=== PATIENT | female | born 1985 | race Caucasian/White ===

== ENCOUNTER 2019-11-04 03:20 | Emergency (ER) | payer SELFPAY ==
[2019-11-04 03:23] VITALS: BP 158/104; PULSE 114; RESP 16; TEMP 36.6; O2SAT 100
--- NOTE | 2019-11-04 03:46 | ED.SKABFB ---
HPI - Skin/Abscess/Foreign Bdy General Chief complaint: Skin/Abscess/Foreign Body Stated complaint: Shingles Time Seen by Provider: 11/04/19 03:28 History of Present Illness HPI narrative: Patient is a 34-year-old female who presents with 2 complaints. First complaint is low back pain beginning 1 week ago. Left-sided and intermittent. Radiates down left leg. Has had similar discomfort with sciatica in the past. Around 8 PM yesterday evening patient noticed that she had a new rash through the lateral aspect of her left thigh. Is had no pustules or blistering/vesicles. It is not itching. She has not applied any cream to it. Concerned it may be shingles that she had this in the past during her . No fevers or chills or sweats. Related Data Home Medications Medication Instructions Recorded Confirmed dextroamphetamine-amphetamine 30 mg PO DAILY 11/04/19 11/04/19 [Adderall XR] fluoxetine [Prozac] 40 mg PO DAILY 11/04/19 11/04/19 Allergies Allergy/AdvReac Type Severity Reaction Status Date / Time No Known Allergies Allergy Verified 11/04/19 03:45 Review of Systems Musculoskeletal: Comments: Low back pain with radiation down the left leg. Integumentary/Breasts: Skin/Breast: Denies pruritus and Reports rash Neurologic: Denies numbness, Reports radicular pain and Denies tingling PMFSH Past Medical History Medical History (Updated 11/04/19 @ 04:01 by Fahad Acosta MD) ADHD Surgical History Surgical History (Updated 11/04/19 @ 04:01 by Fahad Acosta MD) No pertinent past surgical history Social History Social History Gender identity (if verbalized by the patient): Female Exam Narrative: Exam Narrative: GENERAL: Well-appearing, well-nourished, and in no acute distress. HEAD: Normocephalic, atraumatic. EXTREMITIES: Normal range of motion. Normal strength. Back: No reproducible tenderness in the left paraspinal lumbar region. No evidence of trauma or rash to the back or buttock bilaterally. SKIN: Warm, dry. Rash left lateral thigh that has some scaling on top of it. Please see picture below. No vesicles or pustules. No excoriations. Pattern rash that has clearing centrally that looks like a train track, looks like it may have been rubbing on the seam of the pant leg. NEURO: Alert and oriented x3. PSYCH: Normal mood and affect. Extrem: Knee images: 1. 2. 3. Course Course Emergency Course: Discussed with patient I feel she has contact dermatitis given the fact that there is a pattern to the rash on the lateral aspect of her left leg. Also discussed that low back pain going down legs seems more typical of sciatic nerve pain. Discussed treatment plan. Patient did not agree with the plan as she feels that she has shingles which she has no history of vesicular eruption and the rashes not consistent with shingles. She walked out without her paperwork. Vital Signs Vital signs: Vital Signs Temperature 97.8 F 11/04/19 03:23 Pulse Rate 114 H 11/04/19 03:23 Respiratory Rate 16 11/04/19 03:23 Blood Pressure 158/104 H 11/04/19 03:23 Pulse Oximetry 100 11/04/19 03:23 Temperature 97.8 F 11/04/19 03:23 Pulse Rate 114 H 11/04/19 03:23 Respiratory Rate 16 11/04/19 03:23 Blood Pressure 158/104 H 11/04/19 03:23 Pulse Oximetry 100 11/04/19 03:23 Discharge Plan Discharge Clinical Impression: Contact dermatitis Qualifiers: Contact dermatitis type: unspecified Contact dermatitis trigger: unspecified trigger Qualified Code(s): L25.9 - Unspecified contact dermatitis, unspecified cause Sciatica Qualifiers: Laterality: left Qualified Code(s): M54.32 - Sciatica, left side Patient Disposition: Home, Self-Care Condition: Stable Instructions: Contact Dermatitis (ED), Sciatica (ED) Prescriptions: No Action fluoxetine [Prozac] 40 mg Capsule 40 mg PO DAILY RF: 0 dextroamphetamine-amphetamine [Adderall XR] 30 mg Capsule,Extended Rele
== END 2019-11-04 03:50 | disposition home or self-care (01) ==
LOC: ANHED 03:59
PROVIDERS: Emergency Provider Emergency Medicine
DX: M54.42 Lumbago with sciatica, left side (principal); L25.9 Unspecified contact dermatitis, unspecified cause; F90.9 Attention-deficit hyperactivity disorder, unspecified type
CPT/HCPCS: 99281

== ENCOUNTER 2021-05-14 07:01 | Inpatient (IN) | payer OTHER, SELFPAY ==
[2021-05-14] VITALS (32 sets, daily range): BP systolic 99–144; BP diastolic 59–96; PULSE 111–137; RESP 14–27; TEMP 36.2–38.9; O2SAT 100; BMI 27.7
--- NOTE | ~2021-05-14 | CT_ITS ---
EXAMINATION: CT abdomen pelvis w con EXAM DATE: 05/14/2021 09:31 INDICATION: LLQ abd pain with nausea . TECHNIQUE: Spiral CT of the abdomen and pelvis was performed following intravenous injection of 100 m L Omnipaque 350. Axial, coronal and sagittal images of the abdomen and pelvis were reviewed. The do se-length product (DLP) for this examination was 657.85 mGy-cm. The exposure was tailored according to patient size (auto mA exposure control), and iterative reconstruction (ASIR) was used as additiona l dose reduction technique. There is no prior study for comparison. FINDINGS: The liver, spleen, adrenal glands and pancreas are unremarkable. Gallbladder is unremarkab le. No biliary obstruction. Portal and splenic veins are patent. Kidneys enhance symmetrically. T here is no hydronephrosis. The uterus is unremarkable. The bladder is unremarkable. There is no retroperitoneal or pelvic lymphadenopathy. There is mild to moderate thickening of long segment of ileum with mild diffuse edema in the mesenter y. Some of the mesenteric edema also partially surrounds the appendix which is probably congenitally large, no acute appendicitis suspected. Mesenteric arteries and veins enhance as expected. There is s mall to moderate-sized gastroesophageal hiatal hernia. There is moderate amount of colonic fluid pro ximally, stool distally. No free intraperitoneal gas. The heart is normal in size. There are no pericardial or pleural effusions. The lung bases are unremarkable. There are no osteoblastic or ost eolytic lesions identified. IMPRESSION: 1. Enteritis, ileitis. Possible underlying etiologies include infection and inflammatory bowel diseas e. 2. Small to moderate hiatal hernia. Reviewed, dictated and finalized at location A. IMPRESSION: 1. Enteritis, ileitis. Possible underlying etiologies include infection and inf lammatory bowel disease. 2. Small to moderate hiatal hernia.
--- NOTE | 2021-05-14 07:17 | ED.ABDPAIN ---
HPI - Abdominal Pain General Chief Complaint: Abdominal Pain Stated Complaint: abd pain Time Seen by Provider: 05/14/21 07:10 History of Present Illness HPI narrative: Patient presents with abdominal pain. Reports her symptoms started last night have been constant throughout the evenings they were not resolving came to the ER for evaluation. Pain is sharp described as someone ripping out of her intestines worse with any sort of body movement is associated with nausea but does not radiate anywhere. She denies fevers known sick contacts prior abdominal surgeries she denies any urinary symptoms or vaginal bleeding. Related Data Home Medications Medication Instructions Recorded Confirmed dextroamphetamine-amphetamine 30 mg PO DAILY 11/04/19 05/14/21 [Adderall XR] fluoxetine [Prozac] 40 mg PO DAILY 11/04/19 05/14/21 Allergies Allergy/AdvReac Type Severity Reaction Status Date / Time No Known Allergies Allergy Verified 05/14/21 07:08 Review of Systems Review of Systems: CONSTITUTIONAL: Denies fever, chills, or sweats. EYES: Denies visual changes, redness, or discharge. ENT: Denies rhinorrhea, congestion, sore throat, or otalgia. CARDIOVASCULAR: Denies chest pain, palpitations, or edema. RESPIRATORY: Denies cough or dyspnea. GASTROINTESTINAL: Denies vomiting, or diarrhea. GENITOURINARY: Denies dysuria or hematuria. SKIN: Denies rash or itching. MUSCULOSKELETAL: Denies back pain, joint pain, or myalgia. NEUROLOGIC: Denies headache, numbness, dizziness, or weakness. PSYCHIATRIC: Denies anxiety or depression. All systems reviewed & are unremarkable except as noted in HPI and below PMFSH Past Medical History Medical History ADHD Surgical History Surgical History No pertinent past surgical history Social History Social History Smoking status: Smoker, status unknown Alcohol intake: current Drinks per week: 7 Substance use: never Substance use type: does not use Gender identity (if verbalized by the patient): Female Spiritual care concerns: No Exam Narrative: GENERAL: Well-appearing, well-nourished, and in no acute distress. HEAD: Normocephalic, atraumatic. EYES: PERRLA and EOMI. ENT: Nares clear, no rhinorrhea or epistaxis. Mucous membranes moist. NECK: Supple. No masses. No JVD CHEST: Clear to auscultation. No respiratory distress. No wheezes rales or rhonchi HEART: Regular rate and rhythm. No murmur heard. Normal peripheral pulses. ABDOMEN: Moderate left lower quadrant abdominal pain with guarding soft, nondistended. EXTREMITIES: Normal range of motion. No edema. SKIN: Warm, dry, no rash. NEURO: No focal deficits. Alert and oriented x3. PSYCH: Normal mood and affect. Course Reevaluation(s) Reevaluation #1: Patient continues to have tachycardia and abdominal pain despite fluid resuscitation chronic pain medications and anti-inflammatories with vital sign abnormalities difficulty to control symptoms will admit for IV antibiotics and observation Date: 05/14/21 Time: 12:57 Vital Signs Vital signs: Vital Signs Temperature 37.5 C 05/14/21 07:02 Pulse Rate 125 H 05/14/21 07:02 Respiratory Rate 20 05/14/21 07:02 Blood Pressure 144/94 H 05/14/21 07:02 Pulse Oximetry 100 05/14/21 07:02 Temperature 37.1 C 05/14/21 13:41 Pulse Rate 118 H 05/14/21 13:50 Respiratory Rate 16 05/14/21 16:01 Blood Pressure 112/78 05/14/21 16:01 Pulse Oximetry 100 05/14/21 16:01 MDM - Abdominal Pain MDM Narrative Medical decision making narrative: Patient presents with lower abdominal pain she is noted to be tachycardic and hypertensive. Labs imaging obtained. Labs notable for leukocytosis of 24 lactate was normal imaging shows bowel inflammation infectious versus inflammatory process. Attempted 3 L of fluids patient
[2021-05-14] MEDS: SODIUM CHLORIDE 0.9% IV 1,000 ML 999 ML IV CONT ×3 (07:46→11:46)
[2021-05-14] MEDS: ONDANSETRON INJ 4 MG/2 ML VIAL IV PUSH (07:48)
[2021-05-14] MEDS: MORPHINE SULFATE (*CRX) 4 MG/ML INJ IV PUSH (07:48)
[2021-05-14 08:37] LABS: Alanine Aminotransferase 20 U/L (4-35); Albumin Level 4.5 g/dL (3.5-5.1); Alkaline Phosphatase 89 U/L (38-126); Anion Gap 8 mmol/L (8-16); Aspartate Amino Transferase 46 U/L (14-36); Bilirubin,Total 0.8 mg/dL (0.2-1.3); Blood Urea Nitrogen 13 mg/dL (7-17); Calcium 9.1 mg/dL (8.4-10.2); Carbon Dioxide 28 mmol/L (22-30); Chloride 100 mmol/L (98-107); Estimated CRCL calculation 73 ml/min; Estimated Glomerular Filt Rate > 60; Glucose 104 mg/dL (65-110); Lipase 46 U/L (23-300); Potassium 4.2 mmol/L (3.4-5.0); Sodium 136 mmol/L (137-145)
[2021-05-14 08:38] LABS: Lactic Acid Reflex 1.2 mmol/L (0.7-2.1)
[2021-05-14 09:32] LABS: Add Urine Microscopic? YES; Appearance Urine Clear (Clear); Bilirubin Urine Negative (Negative); Blood Urine 1+ (Negative); Color Urine Yellow (Yellow); Glucose Urine UA Negative (Negative); Ketones Urine Negative (Negative); Leukocyte Esterase Ur 2+ LEU/UL (Negative); Mucus Urine Rare /lpf; Nitrate Urine Negative (Negative); Protein Urine Negative (Negative); Specific Grav Ur 1.017 (1.001-1.035); Squamous Epithelial Cell Urine Occasional /hpf (Few); Urobilinogen Urine Negative mg/dL (<2.0); WBC Urine 16-20 /hpf
[2021-05-14 10:06] LABS: Basophils Absolute Auto 0.1 K/mm3 (0.0-0.1); Basophils Percent Auto 0.2 % (0.2-1.2); Eosinophils Absolute Auto 4.1 K/mm3 (0-0.3); Eosinophils Percent Auto 16.9 % (0-4.4); Hematocrit 44.3 % (37.0-47.0); Hemoglobin 13.9 g/dL (12.0-15.0); Immature Granulocyte Absolute 0.17 K/mm3 (0.00-0.031); Immature Granulocyte Percent A 0.7 % (0-0.5); Lymphocytes Absolute Auto 1.61 K/mm3 (0.9-3.2); Lymphocytes Percent Auto 6.6 % (18.3-44.2); Mean Corpuscular HGB Conc 31.4 g/dl (32-36); Mean Corpuscular Hemoglobin 28.7 pg (26-34); Mean Corpuscular Volume 91.3 fl (80-100); Mean Platelet Volume 10.1 fl (7.4-10.4); Monocytes Absolute Auto 0.5 K/mm3 (0.1-0.6); Neutrophils Absolute Auto 17.8 K/mm3 (1.3-6.7); Neutrophils Percent Auto 73.6 % (45.5-73.1); Platelet Count Result 261 k/mm3 (150-375); Red Blood Count 4.85 M/mm3 (4.2-5.4); Red Cell Distribution Width 14.5 % (11.5-14.5); White Blood Count 24.3 K/mm3 (4.5-10.0)
[2021-05-14] MEDS: KETOROLAC 30 MG/ML VIAL (*BKC) 15 MG IV PUSH (10:51)
[2021-05-14] MEDS: metroNIDAZOLE 500 MG/ISO 100ML 500 MG/100 ML BAG 100 MG IVPB ×3 (11:46→23:32)
[2021-05-14] MEDS: ACETAMINOPHEN 500 MG TABLET 1000 MG PO (12:02)
[2021-05-14 12:04] LABS: Lactic Acid Reflex 0.7 mmol/L (0.7-2.1)
[2021-05-14] MEDS: fentaNYL CITRATE INJ (*CRX) 100 MCG/2 ML VIAL 50 MCG IV PUSH ×3 (12:36→19:51)
[2021-05-14] MEDS: DICYCLOMINE HCL 10 MG CAPSULE PO (13:40)
[2021-05-14] MEDS: SODIUM CHLORIDE 0.9% IV 1,000 ML 125 ML IV CONT (16:55)
--- NOTE | 2021-05-14 19:05 | PM.IMHP ---
H&P: HPI History of Present Illness Date/Time: 05/14/21 19:05 this is a 36 year female patient who came to the emergency room today with complaints of abdominal pain. She states that her stomach is burning and feels like it is on fire. The patient stated that this started last night and has continued all through the night. There has not been any resolution and she came to the emergency room to be evaluated. The pain is worse with movement. She does have some nausea but no vomiting. She has more pain in her epigastric area but it does not radiate anywhere. No exposure sick contacts. No fever chills. No recent abdominal surgeries. No vaginal bleeding. Her white count is noted to be 24.3. Urine has 2+ leukocyte Estrace. WBC 16-20. No complain of any urinary symptoms. CT of the abdomen read as. Enteritis, ileitis. Possible underlying etiologies include infection and inflammatory bowel disease. 2. Small to moderate hiatal hernia. The patient was given morphine, Zofran, IV fluids, Toradol, Flagyl, Levaquin, IV Tylenol, fentanyl, and Bentyl for the discomfort. The patient still wakes up and cries at times. Patient also has been tachycardic with her heart rate in the 1 teens to 120s. The patient is being admitted to observation status on the date of service of 05/14/2021. Chief Complaint: Nausea and abdominal pain Review of Systems Review of Systems: All systems reviewed & are unremarkable except as noted in HPI and below Constitutional: Constitutional: Reports as per HPI and Reports no additional constitutional complaints Eyes: Eyes: Reports as per HPI and Reports no additional eye complaints ENT: Reports system reviewed and no additional complaints, except as documented and Reports Normal hearing present Cardiovascular: Cardiovascular: Reports no additional cardiovascular complaints Respiratory: Respiratory: Reports no additional respiratory complaints and Reports no additional respiratory complaints Gastrointestinal: Gastrointestinal: Reports as per HPI and Reports no additional gastrointestinal complaints Musculoskeletal: Musculoskeletal: Reports no additional musculoskeletal complaints Integumentary/Breasts: Skin/Breast: Reports system reviewed and no additional complaints, except as docu and Reports as per HPI Neurologic: Reports system reviewed and no additional complaints, except as documented, Reports as per HPI and Reports Normal hearing present Psychiatric: Psychiatric: Reports no additional psychiatric complaints and Reports as per HPI Endocrine: Endocrine: Reports no additional endocrine complaints Hematologic/Lymphatic: Hematologic/Lymphatic: Reports no additional hematologic/lymphatic complaints Allergic/Immunologic: Allergic/Immunologic: Reports no additional allergic/immunologic complaints PMFSH Past Medical History Medical History ADHD Surgical History Surgical History No pertinent past surgical history Family History Family History (Updated 05/14/21 @ 19:19 by Kim Brandt NP) Unknown No problems noted. Social History Social History (Updated 05/14/21 @ 19:21 by Kim Brandt NP) Social History: The patient has 3 children and is . She is unemployed at this time. She lives home with her children. She denies any alcohol tobacco marijuana or illicit drugs. Patient is a full code and denies any durable power personal injury attorney for healthcare. Smoking status: Smoker, status unknown Alcohol intake: current Drinks per week: 7 Substance use: never Substance use type: does not use Gender identity (if verbalized by the patient): Female Spiritual care concerns: No Meds Home Medications and Allergies Home Medications Medication Instructions Recorded Confirmed Type dextroamphetamine-amphetamine 30 mg PO DAILY 11/04/19 05/14/21 History [Adderall XR]
[2021-05-14] MEDS: FAMOTIDINE 20 MG/2 ML VIAL IV PUSH (19:49)
[2021-05-14] MEDS: CALCIUM CARBONATE (TUMS) 500 MG (200 MG ELEMENTAL) PO (19:49)
[2021-05-14] MEDS: KETOROLAC 30 MG/ML VIAL (*BKC) IV PUSH (22:43)
[2021-05-15] VITALS (9 sets, daily range): BP systolic 114–138; BP diastolic 78–85; PULSE 86–105; RESP 16; TEMP 36.1–37.2; O2SAT 99–100
[2021-05-15] MEDS: fentaNYL CITRATE INJ (*CRX) 100 MCG/2 ML VIAL 50 MCG IV PUSH ×6 (04:27→21:44)
[2021-05-15] MEDS: SODIUM CHLORIDE 0.9% IV 1,000 ML 125 ML IV CONT ×2 (04:40→09:36)
[2021-05-15] MEDS: metroNIDAZOLE 500 MG/ISO 100ML 500 MG/100 ML BAG 100 MG IVPB ×3 (05:05→17:08)
[2021-05-15 05:15] LABS: Barbiturate Screen Urine Negative (Negative); Benzodiazepines Screen Urine Negative (Negative)
[2021-05-15 05:23] LABS: Hematocrit 35.4 % (37.0-47.0); Hemoglobin 11.5 g/dL (12.0-15.0); Mean Corpuscular HGB Conc 32.5 g/dl (32-36); Mean Corpuscular Volume 89.2 fl (80-100); Mean Platelet Volume 9.6 fl (7.4-10.4); Platelet Count Result 292 k/mm3 (150-375); Red Blood Count 3.97 M/mm3 (4.2-5.4); Red Cell Distribution Width 14.6 % (11.5-14.5); White Blood Count 21.5 K/mm3 (4.5-10.0)
[2021-05-15 05:30] LABS: Cannabinoid Screen Urine Negative (Negative); Cocaine Screen Urine Negative (Negative); Methadone Screen Urine Negative (Negative); Opiate Screen Urine Positive (Negative); Phencyclidine Screen Urine Negative (Negative)
[2021-05-15 05:36] LABS: Alanine Aminotransferase 15 U/L (4-35); Alkaline Phosphatase 85 U/L (38-126); Anion Gap 7 mmol/L (8-16); Aspartate Amino Transferase 17 U/L (14-36); Bilirubin,Total 0.4 mg/dL (0.2-1.3); Blood Urea Nitrogen 13 mg/dL (7-17); Calcium 7.2 mg/dL (8.4-10.2); Carbon Dioxide 20 mmol/L (22-30); Chloride 110 mmol/L (98-107); Estimated CRCL calculation 94 ml/min; Estimated Glomerular Filt Rate > 60; Glucose 85 mg/dL (65-110); Magnesium 1.5 mg/dL (1.6-2.3); Phosphorus 2.5 mg/dL (2.5-4.5); Potassium 3.6 mmol/L (3.4-5.0); Sodium 137 mmol/L (137-145)
[2021-05-15 05:45] LABS: Band Neutrophils Percent 11 % (0-6); Lymphocytes Absolute Manual 1.93 K/mm3 (1.1-4.5); Monocytes Absolute Manual 0.43 K/mm3 (0.1-0.90); Monocytes Percent Manual 2 % (3-9); Neutrophils Absolute Manual 19.13 K/mm3 (1.7-7.2); Neutrophils Percent Manual 78 % (46-73); Total Cells Counted 100
[2021-05-15 05:46] LABS: Amphetamine Screen Urine Positive (Negative)
[2021-05-15 05:46] LABS: Platelet Estimate Adequate (Adequate)
[2021-05-15] MEDS: KETOROLAC 30 MG/ML VIAL (*BKC) IV PUSH (06:24)
--- NOTE | 2021-05-15 08:59 | PM.IMPN ---
Progress Note: A&P Assessment and Plan (1) Enteritis: Code(s): K52.9 - Noninfective gastroenteritis and colitis, unspecified Status: Acute Assessment and Plan: Patient was started on Levaquin and Flagyl. Continue with IV fluids. Patient is NPO except for ice chips. May consider GI consult. Continue with Pepcid. Continue with antiemetics. Continue with pain management. (2) Tachycardia: Code(s): R00.0 - Tachycardia, unspecified Status: Acute Assessment and Plan: Could be related to anxiety or sepsis. Patient has leukocytosis. (3) Leukocytosis (leucocytosis): Qualifiers: Leukocytosis type: unspecified Qualified Code(s): D72.829 - Elevated white blood cell count, unspecified Code(s): D72.829 - Elevated white blood cell count, unspecified Status: Acute Assessment and Plan: Patient's white count is 24.3. Blood cultures are pending. The patient was placed on Levaquin and Flagyl for possible bacteria enterocolitis. (4) Abdominal pain: Qualifiers: Abdominal location: unspecified location Qualified Code(s): R10.9 - Unspecified abdominal pain Code(s): R10.9 - Unspecified abdominal pain Status: Acute Assessment and Plan: Continue with IV fluids and IV pain medication. Continue with Bentyl. (5) UTI (urinary tract infection): Code(s): N39.0 - Urinary tract infection, site not specified Status: Acute Assessment and Plan: Urine culture and continue IV antibiotics (6) Substance abuse: Code(s): F19.10 - Other psychoactive substance abuse, uncomplicated Status: Acute Assessment and Plan: counseling given. Arranged for outpatient rehab. Additional Plan 05/15/2021 Will continue current plan of care and treatment. WBCs trending down. Will monitor closely, electrolytes are stable. Counseling given for substance abuse. Subjective Date/time seen: 05/15/21 08:59 Patient was seen during the morning rounds today. Still has mild abdominal pain. No nausea or vomiting. No chest pain or shortness of breath. Mood stable. Review of Systems Review of Systems: All systems reviewed & are unremarkable except as noted in HPI and below Constitutional: Constitutional: Reports as per HPI and Reports no additional constitutional complaints Eyes: Eyes: Reports as per HPI and Reports no additional eye complaints ENT: Reports system reviewed and no additional complaints, except as documented and Reports Normal hearing present Cardiovascular: Cardiovascular: Reports no additional cardiovascular complaints Respiratory: Respiratory: Reports no additional respiratory complaints and Reports no additional respiratory complaints Gastrointestinal: Gastrointestinal: Reports as per HPI and Reports no additional gastrointestinal complaints Musculoskeletal: Musculoskeletal: Reports no additional musculoskeletal complaints Integumentary/Breasts: Skin/Breast: Reports system reviewed and no additional complaints, except as docu and Reports as per HPI Neurologic: Reports system reviewed and no additional complaints, except as documented, Reports as per HPI and Reports Normal hearing present Psychiatric: Psychiatric: Reports no additional psychiatric complaints and Reports as per HPI Endocrine: Endocrine: Reports no additional endocrine complaints Hematologic/Lymphatic: Hematologic/Lymphatic: Reports no additional hematologic/lymphatic complaints Allergic/Immunologic: Allergic/Immunologic: Reports no additional allergic/immunologic complaints Exam Const: General: cooperative, comfortable, no acute distress, well developed, alert, awake, Physically active and ill appearing Nutritional Appearance: average body habitus and well nourished Orientation/consciousness: oriented to person, oriented to place, oriented to time and patient oriented x3 Limitations: no limitations HENMT: Head: normal to inspection, No palpa
[2021-05-15 09:28] LABS: Free T4 Free Thyroxine Reflex 1.51 ng/dL (0.78-2.19)
[2021-05-15] MEDS: HEPARIN SODIUM 5,000 UNITS/ML VIAL 5000 UNITS SUB-Q ×2 (09:28→19:42)
[2021-05-15] MEDS: FAMOTIDINE 20 MG/2 ML VIAL IV PUSH ×2 (09:28→19:42)
[2021-05-15] MEDS: FLUoxetine HCL 20 MG CAPSULE 40 MG PO (09:28)
[2021-05-15 10:27] LABS: Total Triiodothyronine (T3) 0.75 NG/ML (0.97-1.69)
[2021-05-16] VITALS (9 sets, daily range): BP systolic 121–140; BP diastolic 75–90; PULSE 86–103; RESP 16–20; TEMP 36.3–36.7; O2SAT 97–99
[2021-05-16] MEDS: metroNIDAZOLE 500 MG/ISO 100ML 500 MG/100 ML BAG 100 MG IVPB ×4 (00:10→18:29)
[2021-05-16] MEDS: SODIUM CHLORIDE 0.9% IV 1,000 ML 125 ML IV CONT ×2 (00:11→09:50)
[2021-05-16] MEDS: fentaNYL CITRATE INJ (*CRX) 100 MCG/2 ML VIAL 50 MCG IV PUSH ×2 (01:16→04:08)
[2021-05-16] MEDS: DICYCLOMINE HCL 10 MG CAPSULE 20 MG PO ×4 (02:50→20:07)
[2021-05-16 05:19] LABS: Hematocrit 32.1 % (37.0-47.0); Hemoglobin 10.4 g/dL (12.0-15.0); Mean Corpuscular HGB Conc 32.4 g/dl (32-36); Mean Corpuscular Hemoglobin 28.8 pg (26-34); Mean Corpuscular Volume 88.9 fl (80-100); Mean Platelet Volume 9.7 fl (7.4-10.4); Platelet Count Result 270 k/mm3 (150-375); Red Blood Count 3.61 M/mm3 (4.2-5.4); Red Cell Distribution Width 14.4 % (11.5-14.5); White Blood Count 14.4 K/mm3 (4.5-10.0)
[2021-05-16 05:33] LABS: Alanine Aminotransferase 12 U/L (4-35); Albumin Level 2.8 g/dL (3.5-5.1); Alkaline Phosphatase 86 U/L (38-126); Anion Gap 11 mmol/L (8-16); Aspartate Amino Transferase 21 U/L (14-36); Bilirubin,Total 0.2 mg/dL (0.2-1.3); Blood Urea Nitrogen 10 mg/dL (7-17); Calcium 7.7 mg/dL (8.4-10.2); Carbon Dioxide 17 mmol/L (22-30); Chloride 109 mmol/L (98-107); Estimated CRCL calculation 94 ml/min; Estimated Glomerular Filt Rate > 60; Glucose 70 mg/dL (65-110); Potassium 3.4 mmol/L (3.4-5.0); Sodium 137 mmol/L (137-145)
[2021-05-16] MEDS: FAMOTIDINE 20 MG/2 ML VIAL IV PUSH ×2 (09:19→20:02)
[2021-05-16] MEDS: HYDROcodone/acetaminophen (*CRX) 5-325 MG TABLET 1 TAB PO ×2 (09:19→16:36)
[2021-05-16] MEDS: FLUoxetine HCL 20 MG CAPSULE 40 MG PO (09:19)
[2021-05-16] MEDS: HEPARIN SODIUM 5,000 UNITS/ML VIAL 5000 UNITS SUB-Q ×2 (09:20→20:02)
--- NOTE | 2021-05-16 11:46 | PM.IMPN ---
Progress Note: A&P Assessment and Plan (1) Enteritis: Code(s): K52.9 - Noninfective gastroenteritis and colitis, unspecified Status: Acute Assessment and Plan: CT on presentation showed ileitis Infectious versus inflammatory etiology. Lactic acid level within normal limits, ischemic etiology unlikely. Infection more likely given markedly leukocytosis at presentation up to 24.3. Improved to 14.4 today with IV antibiotics. Febrile up to 102.0 at admission, remaining afebrile >48 hours Continue IV Levaquin and Flagyl Continue IV fluid rehydration Advance to clear liquid diet. Continue to advance as tolerated Will proceed with gastroenterology consultation given worsening of symptoms despite above therapies Supportive care. Analgesics and antiemetics available as needed. (2) Sepsis: Code(s): A41.9 - Sepsis, unspecified organism Status: Acute Assessment and Plan: Septic on presentation with fever, tachycardia, and leukocytosis. Lactic within normal limits. Likely related to infectious ileitis as above Resolving. White count improving. She is afebrile. Continue with IV fluids Blood cultures not collected at presentation. Will not proceed with blood culture collection at this point following 3 days of IV antibiotic therapy. If she were to develop subsequent fevers, would then obtain cultures (3) Abdominal pain: Qualifiers: Abdominal location: unspecified location Qualified Code(s): R10.9 - Unspecified abdominal pain Code(s): R10.9 - Unspecified abdominal pain Status: Acute Assessment and Plan: Suspect related to enteritis Plan as above Dicyclomine as needed (4) Abnormal urinalysis: Code(s): R82.90 - Unspecified abnormal findings in urine Status: Acute Assessment and Plan: UA abnormal on presentation. No urinary symptoms Urine culture negative No further treatment needed (5) Substance abuse: Code(s): F19.10 - Other psychoactive substance abuse, uncomplicated Status: Acute Assessment and Plan: UDS positive for opioids and amphetamines (she is on prescribed adderall). She has been counseled by previous provider regarding cessation of opioid use. Outpatient rehab reportedly discussed Continue to reinforce abstinence from substance use. Cautious use with narcotic pain medication during hospital stay. (6) Subclinical hypothyroidism: Code(s): E03.8 - Other specified hypothyroidism Status: Acute Assessment and Plan: TSH elevated, T4 within normal limits, and T3 slightly decreased She will need repeat reflex TSH as an outpatient upon resolution of acute illness in 4-6 weeks Subjective Date/time seen: 05/16/21 11:46 Interval history: Date of service: 05/16/2021 Corrine Davenport is a 36-year-old female with a history of ADHD and depression who is seen in follow-up for abdominal. She is having a significant amount pain today and overall feeling very poorly. She describes a lower abdominal discomfort that is stabbing in nature. At rest she rates it as 6/10 but with any movement whatsoever is 25/10. She reports her pain has gotten worse throughout her hospitalization and she has had no improvement whatsoever. She notes that taking deep breaths causes worsened abdominal pain and she feels as though shins to cough but fears this will worsen her pain. She has not had a bowel movement in approximately 5 days. Reports she has not had anything to eat in 4 days. She has not had any nausea or vomiting, but states she has nothing to throw up. She denies fever or chills. No chest pain. No dizziness or lightheadedness. She states she needs assistance to walk to the bathroom due to her severe pain. She has not urinated since last night and reports feeling very dehydrated, though it has been documented that she has been urinating regularly and did urinate this morning.
[2021-05-16] MEDS: ONDANSETRON INJ 4 MG/2 ML VIAL IV PUSH (16:36)
[2021-05-16] MEDS: POTASSIUM CHLORIDE 20 MEQ PACKET (FOR LIQUID) PO (16:37)
[2021-05-16] MEDS: CALCIUM CARBONATE (TUMS) 500 MG (200 MG ELEMENTAL) PO (18:08)
[2021-05-16 18:54] LABS: CRP 7.9 mg/dL (<1.0)
[2021-05-17] MEDS: metroNIDAZOLE 500 MG/ISO 100ML 500 MG/100 ML BAG 100 MG IVPB ×3 (00:02→14:00)
[2021-05-17] MEDS: HYDROcodone/acetaminophen (*CRX) 5-325 MG TABLET 1 TAB PO ×3 (00:31→16:47)
[2021-05-17 04:13] VITALS: BP 144/88; PULSE 81; RESP 20; TEMP 36.2; O2SAT 97
[2021-05-17 05:59] LABS: Basophils Percent Auto 0.2 % (0.2-1.2); Eosinophils Absolute Auto 0.2 K/mm3 (0-0.3); Eosinophils Percent Auto 2.2 % (0-4.4); Hematocrit 32.8 % (37.0-47.0); Hemoglobin 10.7 g/dL (12.0-15.0); Immature Granulocyte Absolute 0.05 K/mm3 (0.00-0.031); Immature Granulocyte Percent A 0.6 % (0-0.5); Lymphocytes Absolute Auto 1.46 K/mm3 (0.9-3.2); Lymphocytes Percent Auto 18.1 % (18.3-44.2); Mean Corpuscular HGB Conc 32.6 g/dl (32-36); Mean Corpuscular Hemoglobin 28.9 pg (26-34); Mean Corpuscular Volume 88.6 fl (80-100); Mean Platelet Volume 9.4 fl (7.4-10.4); Monocytes Absolute Auto 0.5 K/mm3 (0.1-0.6); Monocytes Percent Auto 6.3 % (2.6-8.5); Neutrophils Absolute Auto 5.9 K/mm3 (1.3-6.7); Neutrophils Percent Auto 72.6 % (45.5-73.1); Platelet Count Result 316 k/mm3 (150-375); Red Cell Distribution Width 14.3 % (11.5-14.5); White Blood Count 8.1 K/mm3 (4.5-10.0)
[2021-05-17 06:14] LABS: Anion Gap 5 mmol/L (8-16); Blood Urea Nitrogen 5 mg/dL (7-17); Calcium 7.8 mg/dL (8.4-10.2); Carbon Dioxide 22 mmol/L (22-30); Chloride 109 mmol/L (98-107); Estimated CRCL calculation 94 ml/min; Estimated Glomerular Filt Rate > 60; Glucose 89 mg/dL (65-110); Potassium 3.3 mmol/L (3.4-5.0); Sodium 136 mmol/L (137-145)
--- NOTE | 2021-05-17 07:26 | WPDGICN ---
Assessment and Plan Assessment and plan (1) Abdominal pain: Qualifiers: Abdominal location: unspecified location Qualified Code(s): R10.9 - Unspecified abdominal pain Code(s): R10.9 - Unspecified abdominal pain Status: Acute Assessment and Plan: her pain is not localizing. She has pain and tenderness in both the epigastric area and the lower quadrants. Although the acute onset suggests possible infectious etiology. The lack of diarrhea suggests otherwise (2) Enteritis: Code(s): K52.9 - Noninfective gastroenteritis and colitis, unspecified Status: Acute Assessment and Plan: after discussion with Radiology, it was felt that further radiographs such as small-bowel series and/or CT with oral contrast, would not add much. I will perform an EGD and see then if we can prep her for colonoscopy GI Consult Note Consult date/time: 05/17/21 07:26 HPI: Corrine Davenport is a 36 year old female who was admitted with severe abdominal pain. This began Sunday around mid day. She had nausea but was not vomiting except 2 occasions she brought up some bilious material. The pain was primarily in lower abdomen but also felt in the epigastric area. The pain has not been subsiding and is constant. She has required quite a bit of Narcotic analgesics to help alleviate it. she denies having a fever at home but did run a low-grade temp here. She has not had diarrhea. She had mention however that lately when she needs to have a bowel movement is painful to try to evacuate with some pain similar to the present pain but much less so in the pelvic area. She had blood in her stools at 1 time and in fact was having abdominal pain with that. She had gone to the emergency room and the physician there said that she may have Crohn's disease but when her symptoms subsided after a day or 2 she did not seek medical care. She had has not had weight loss. Her current weight is a little more than a was prior to last year. She is not aware of any family history of inflammatory bowel disease. She has had no bowel movements since she admission. She has had sips of water but has not felt like eating or drinking much. CT scan shows possible enteritis. I reviewed this myself and discussed it with radiologist Dr. Monroe, who does not see high-grade narrowing or obstruction. Primarily the diagnosis of enteritis was based on edematous small bowel folds and mesenteric thickening. He does not feel that a small bowel series would add much Review of Systems Review of Systems: All systems reviewed & are unremarkable except as noted in HPI and below PMFSH Past Medical History Medical History ADHD Surgical History Surgical History No pertinent past surgical history Family History Family History Unknown No problems noted. Social History Social History Social History: The patient has 3 children and is . She is unemployed at this time. She lives home with her children. She denies any alcohol tobacco marijuana or illicit drugs. Patient is a full code and denies any durable power assistant district attorney for healthcare. Smoking status: Smoker, status unknown Alcohol intake: current Drinks per week: 7 Substance use: never Substance use type: does not use Gender identity (if verbalized by the patient): Female Spiritual care concerns: No Meds Home Medications and Allergies Home Medications Medication Instructions Recorded Confirmed Type dextroamphetamine-amphetamine 30 mg PO DAILY 11/04/19 05/14/21 History [Adderall XR] fluoxetine [Prozac] 40 mg PO DAILY 11/04/19 05/14/21 History Allergies Allergy/AdvReac Type Severity Reaction Status Date / Time No Known All
[2021-05-17] MEDS: HEPARIN SODIUM 5,000 UNITS/ML VIAL 5000 UNITS SUB-Q (08:18)
[2021-05-17] MEDS: FAMOTIDINE 20 MG/2 ML VIAL IV PUSH (08:18)
[2021-05-17] MEDS: FLUoxetine HCL 20 MG CAPSULE 40 MG PO (08:18)
--- NOTE | 2021-05-17 10:27 | PM.IMPN ---
Progress Note: A&P Assessment and Plan (1) Enteritis: Code(s): K52.9 - Noninfective gastroenteritis and colitis, unspecified Status: Acute Assessment and Plan: CT on presentation showed ileitis Infectious versus inflammatory etiology. Lactic acid level within normal limits, ischemic etiology unlikely. Infection more likely given marked leukocytosis at presentation up to 24.3. WBC has normalized today with IV antibiotic therapy. Febrile up to 102.0 at admission, remaining afebrile >72 hours. No diarrhea. Continue IV Levaquin and Flagyl Advanced to clear liquid diet. She is NPO now for EGD Appreciate gastroenterology consultation Planning for EGD this afternoon Supportive care. Analgesics and antiemetics available as needed. (2) Sepsis: Code(s): A41.9 - Sepsis, unspecified organism Status: Acute Assessment and Plan: Septic on presentation with fever, tachycardia, and leukocytosis. Lactic within normal limits. Likely related to suspected infectious ileitis as above Resolving. White count normalized. She is afebrile. Blood cultures not collected at presentation. Will not proceed with blood culture collection at this point following 3 days of IV antibiotic therapy. If she were to develop subsequent fevers, would then obtain cultures (3) Abdominal pain: Qualifiers: Abdominal location: unspecified location Qualified Code(s): R10.9 - Unspecified abdominal pain Code(s): R10.9 - Unspecified abdominal pain Status: Acute Assessment and Plan: Suspect related to enteritis Plan as above EGD pending Dicyclomine as needed (4) Abnormal urinalysis: Code(s): R82.90 - Unspecified abnormal findings in urine Status: Acute Assessment and Plan: UA abnormal on presentation. No urinary symptoms Urine culture negative No further treatment needed (5) Substance abuse: Code(s): F19.10 - Other psychoactive substance abuse, uncomplicated Status: Acute Assessment and Plan: UDS positive for opioids and amphetamines (she is on prescribed adderall). She has been counseled by previous provider regarding cessation of opioid use. Outpatient rehab reportedly discussed Continue to reinforce abstinence from substance use. Cautious use with narcotic pain medication during hospital stay. (6) Subclinical hypothyroidism: Code(s): E03.8 - Other specified hypothyroidism Status: Acute Assessment and Plan: TSH elevated, T4 within normal limits, and T3 slightly decreased She will need repeat reflex TSH as an outpatient upon resolution of acute illness in 4-6 weeks Subjective Date/time seen: 05/17/21 10:27 Interval history: Date of service: 05/17/2021 Corrine Davenport is a 36-year-old female with a history of ADHD and depression who is seen in follow-up for abdominal pain. She is still having significant abdominal pain today in her lower abdomen. She reports soreness of the epigastric region. Denies nausea or vomiting. She has been NPO today. She has not had a bowel movement today. Denies dysuria or hematuria. No shortness breath, cough, or chest pain. Denies dizziness or lightheadedness. Denies fever or chills. She still feels weak and is having trouble ambulating due to her pain. Review of Systems Review of Systems: All systems reviewed & are unremarkable except as noted in HPI and below Exam Narrative: Ms. Davenport is a well-nourished, well-appearing 36-year-old female who is lying supine in bed. She is resting comfortably and is in NARD Neuro: awake, alert and oriented x4, speech clear, no focal neuro deficits noted HEENMT: normocephalic, atraumatic, EOMI, sclerae anicteric, moist oral mucosa Neck: supple, no lymphadenopathy Respiratory: clear to auscultation anteriorly (was not able to sit up or rotate for posterior lung exam due to pain), nonlabored breathing
--- NOTE | 2021-05-17 11:25 | PC.NURSE ---
To GI Lab per nelsy, IV saline locked. Report given to Zoey.
[2021-05-17] MEDS: LACTATED RINGERS 1,000 ML 150 ML IV CONT (12:03)
[2021-05-17 12:07] VITALS: BP 150/92; PULSE 72; RESP 16; TEMP 36.1; O2SAT 97
--- NOTE | 2021-05-17 12:31 | WPDANESEPPF ---
Anes - Initial Pre Proc Eval Procedure: Operation Date: 05/17/21 13:00 Proposed Procedures p Esophagogastroduodenoscopy - Oumar Dimas MD Date/Time: 05/17/21 12:31 Surgeon: Melinda Malone PA-C Pre Op Diagnosis: Enteritis Patient Data Age: 36 Gender: F Height: 1.63 m Weight: 73.3 kg Last Vital Signs Temp 97.0 F L 05/17/21 12:07 Pulse 72 05/17/21 12:07 Resp 16 05/17/21 12:07 BP 150/92 H 05/17/21 12:07 Pulse Ox 97 05/17/21 12:07 Allergies Allergy/AdvReac Type Severity Reaction Status Date / Time No Known Allergies Allergy Verified 05/14/21 07:08 Home Medications Medication Instructions Recorded Confirmed Type dextroamphetamine-amphetamine 30 mg PO DAILY 11/04/19 05/14/21 History [Adderall XR] fluoxetine [Prozac] 40 mg PO DAILY 11/04/19 05/14/21 History Laboratory Tests 05/16/21 05/16/21 05/17/21 18:34 18:34 05:42 WBC 8.1 K/mm3 K/mm3 (4.5-10.0) RBC 3.70 M/mm3 L M/mm3 (4.2-5.4) Hgb 10.7 g/dL L g/dL (12.0-15.0) Hct 32.8 % L % (37.0-47.0) MCV 88.6 fl fl (80-100) MCH 28.9 pg pg (26-34) MCHC 32.6 g/dl g/dl (32-36) RDW 14.3 % % (11.5-14.5) Plt Count 316 k/mm3 k/mm3 (150-375) MPV 9.4 fl fl (7.4-10.4) Immature Gran % (Auto) 0.6 % H % (0-0.5) Neut % (Auto) 72.6 % % (45.5-73.1) Lymph % (Auto) 18.1 % L % (18.3-44.2) Solano % (Auto) 6.3 % % (2.6-8.5) Eos % (Auto) 2.2 % % (0-4.4) Baso % (Auto) 0.2 % % (0.2-1.2) Lymph # (Auto) 1.46 K/mm3 K/mm3 (0.9-3.2) Solano # (Auto) 0.5 K/mm3 K/mm3 (0.1-0.6) Eos # (Auto) 0.2 K/mm3 K/mm3 (0-0.3) Baso # (Auto) 0.0 K/mm3 K/mm3 (0.0-0.1) Abs Immat Gran (auto) 0.05 K/mm3 H K/mm3 (0.00-0.031) Absolute Neuts (auto) 5.9 K/mm3 K/mm3 (1.3-6.7) Absolute Nucleated RBC 0.0 K/mm3 K/mm3 (0.0-0.012) Nucleated RBC % 0.0 % % (0.0-0.2) Sodium Potassium Chloride Carbon Dioxide Anion Gap BUN Creatinine Estim Creat Clear Calc Estimated GFR Glucose Calcium C-Reactive Protein 7.9 mg/dL H mg/dL (<1.0) ANCA Screen Pending Proteinase 3 (PR3) Ab Pending Myeloperoxidase Ab Pending S.cerevisiae IgG Ab Pending S.cerevisiae IgA Ab Pending 05/17/21 05:42 WBC RBC Hgb Hct MCV MCH MCHC RDW Plt Count MPV Immature Gran % (Auto) Neut % (Auto) Lymph % (Auto) Solano % (Auto) Eos % (Auto) Baso % (Auto) Lymph # (Auto) Solano # (Auto) Eos # (Auto) Baso # (Auto) Abs Immat Gran (auto) Absolute Neuts (auto) Absolute Nucleated RBC Nucleated RBC % Sodium 136 mmol/L L mmol/L (137-145) Potassium 3.3 mmol/L L mmol/L (3.4-5.0) Chloride 109 mmol/L H mmol/L (98-107) Carbon Dioxide 22 mmol/L mmol/L (22-30) Anion Gap 5 mmol/L L mmol/L (8-16) BUN 5 mg/dL L D mg/dL (7-17) Creatinine 0.70 mg/dL mg/dL (0.7-1.0) Estim Creat Clear Calc 94 ml/min ml/min Estimated GFR > 60 (59 - ) Glucose 89 mg/dL mg/dL (65-110) Calcium 7.8 mg/dL L mg/dL (8.4-10.2) C-Reactive Protein ANCA Screen Proteinase 3 (PR3) Ab Myeloperoxidase Ab S.cerevisiae IgG Ab S.cerevisiae IgA Ab Patient hx anesthesia problems: none Family hx anesthesia problems: none Results Review: All pre-operative results and documents have been reviewed as part of the pre-operative evaluation. [facility] Past Medical History Medical History ADHD Surgical
[2021-05-17 13:16] VITALS: BP 138/95; PULSE 88; RESP 18; O2SAT 99
[2021-05-17 13:26] VITALS: BP 147/100; PULSE 84; RESP 20; O2SAT 99
[2021-05-17 13:36] VITALS: BP 148/98; PULSE 76; RESP 18; O2SAT 100
--- NOTE | 2021-05-17 13:45 | PC.NURSE ---
Returned from GI Lab. Report received from
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
--- NOTE | 2021-05-17 18:44 | PC.NURSE ---
This nurse presented to the patients room when the patient became irritable and aggressive towards other members of the staff. This nurse presented to the room to find that the patient was upset stating that we were not taking care of the patient appropriately, she repeatedly stated that she has been to numerous hospitals and has never been treated this poorly. She has never needed 2 IVs before and has never been so completely ignored, she also mentioned several times that we have been extremely rude and dismissive towards her the entire time she was here. Per Karine Lopez RN, the patient called when this nurse was on break and stated that the patient was complaining of pain at her right AC IV site and burning. The patient was told not only by this nurse and Karine RN, that she was receiving IV Potassium to replace her low potassium and it can burn, we can turn the rate down to decrease the burning sensation. When Karine presented to the patients room the patient was already attempting to remove her IV from the right AC. Karine stated that she removed the patients IV per her wishes then stated she wanted to talk to the charge nurse. The charge nurse was present in the room when this nurse presented to talk with her. This nurse asked her multiple times what was going on and what was happening. The patient loudly expressed with a multitude of curse words that we were ignoring her, she had to wait 45 minutes for someone to help take her to the bathroom. She is in a significant amount of pain and we aren't doing anything to help her with her pain. This nurse attempted multiple times to politely discuss with the patient the situation at hand and this nurse was abruptly shut down with the patients continued yelling and cursing. The patient finally stated that she would like to speak to a doctor about transferring to a different hospital. This nurse explained to the patient that the doctors have told her a number of times that they will not transfer her to another hospital but if she wished to go to a different hospital she could sign an AMA form and seek transportation to another facility. This nurse informed the patient the process of a hospital to hospital transfer and even if a transfer was approved she could potentially be waiting several days before she would get a bed at the receiving facility. The patient promptly stated that she was not putting up with this and she mentioned multiple times to this nurse that wouldn't you want to go to a different hospital if you were being treated like shit and being completely ignored. This nurse tried to talk to the patient and attempt to calm her down. The patient finally stated she did not wish to continue talking to me and that she wanted to speak to the doctor. This nurse contact Dr. Guerra and Melinda WHEELER about the situation at hand. Per Dr. Guerra and Melinda WHEELER they have talked to her and will not be coming bedside when everything above has already been discussed with her. This nurse informed them both that the patient is signing out AMA and that the overnight houseperson Tato Boyce has been informed and will be coming to discuss the issue with the patient. When this nurse was assessing and treating the other patients the patient let. When the overnight houseperson came to talk with the patient he stated that the room was empty. This nurse went into the room to assess where the patient was. The patient had left and left with her IV still in place. This nurse gathered supplies to remove an IV while other members of the nursing staff contacted the front end application developer to prevent her from leaving to this nurse could remove her IV in place. This nurse walked down the hospital entrance one and the patient was sitting outside with her IV still in place. This nurse removed the IV and the patient asked me at this time to call her an ambulance to transport her to [facility]. This nurse promptly informed the patient that she could call an ambulance on
--- NOTE | 2021-05-19 09:00 | P.PNCROSS_ITS ---
Event Note Event Note Event Note: Patient left AMA. This document may serve as discharge summary. On 05/17/2021 I was informed by RNVioleta that the patient chose to sign out against medical advice. She was reportedly irritable and aggressive as she felt she was not being cared for properly. Patient was assessed by RN, charge nurse, and warehouse production worker prior to her departure. Discussed with my supervising physician who was made aware of patient's departure.
[2021-05-24 09:32] LABS: ANCA Screen Negative (Negative); Myeloperoxidase Ab <1.0 AI (<1.0); Proteinase-3 Ab <1.0 AI (<1.0); S cerevisiae Ab (IgA) 10.7 U (<=20.0); S cerevisiae Ab (IgG) 10.9 U (<=20.0)
== END 2021-05-17 19:49 | disposition home or self-care (01) | DRG 249 ==
LOC: ANHED 13:22 → ANH2MED 16:25
PROVIDERS: Internal Medicine; Internal Medicine Gastroenterology; Nurse Practitioner; Physician Assistant; Admitting Provider Internal Medicine; Emergency Provider Emergency Medicine; PCP Physician Assistant; Visit Provider Internal Medicine
PROC: 0DJ08ZZ Inspection of Upper Intestinal Tract, Via Natural or Artificial Opening Endoscopic (ICD-10-PCS; CPT 43235; principal; 2021-05-17 13:00)
DX: K52.9 Noninfective gastroenteritis and colitis, unspecified (principal); K22.10 Ulcer of esophagus without bleeding; K44.9 Diaphragmatic hernia without obstruction or gangrene; R82.90 Unspecified abnormal findings in urine; F19.10 Other psychoactive substance abuse, uncomplicated; E03.8 Other specified hypothyroidism; F90.9 Attention-deficit hyperactivity disorder, unspecified type; F32.9 Major depressive disorder, single episode, unspecified; Z79.899 Other long term (current) drug therapy
CPT/HCPCS: 36415; 74177; 80048; 80053; 80307; 81001; 81025; 83605; 83690; 83735; 84100; 84439; 84443; 84480; 85025; 85027; 86021; 86140; 86671; 87081; 87086; 88305; 96361; 96365; 96366; 96367; 96368; 96372; 96375; 96376; 99285; A9270; G0378; G0379; J1644; J1885; J1956; J2001; J2270; J2405; J2704; J3010; J3480; J7030; J7060; J7120; Q9967

== ENCOUNTER 2024-02-04 19:45 | Emergency (ER) | payer BC, SELFPAY ==
--- NOTE | ~2024-02-04 | CT_ITS ---
EXAMINATION: CT abdomen pelvis w con DATE: 02/04/2024 21:33 INDICATION: right upper quadrant pain TECHNIQUE: Computed tomography (CT) of the abdomen and pelvis was performed with 100 mL Omnipaque-350 intravenous contrast. Automated exposure control and iterative reconstruction technique were employe d. The dose-length product was 455.72 mGy-cm. COMPARISON: 05/14/2021. FINDINGS: Lower thorax: Unremarkable Liver: Normal. Biliary/Gallbladder: Gallbladder is contracted. No bile duct dilation. Pancreas: No mass or duct dilation. Spleen: Normal. Adrenals:No mass. Kidneys: No suspicious mass, obstructing stone, or hydronephrosis. GI tract: Small hiatal hernia. No small or large bowel dilation. Normal appendix. Mesentery/Peritoneum: No ascites, mass, or free air. Enlarged gastrohepatic lymph node, unchanged. Retroperitoneum: No mass. Pelvis: Pelvic organs are within normal limits. Soft Tissues: Soft tissues and body wall unremarkable. Bones: No acute osseous finding. IMPRESSION: No acute abdominopelvic process detected. Reviewed, dictated and finalized at location K.
[2024-02-04 19:48] VITALS: BP 134/95; PULSE 95; RESP 15; TEMP 36.2; O2SAT 98
[2024-02-04 20:13] LABS: Basophils Absolute Auto 0.1 K/mm3 (0.0-0.1); Basophils Percent Auto 0.7 % (0.2-1.2); Eosinophils Absolute Auto 0.3 K/mm3 (0-0.3); Eosinophils Percent Auto 2.8 % (0-4.4); Hematocrit 48.1 % (37.0-47.0); Hemoglobin 16.1 g/dL (12.0-15.0); Immature Granulocyte Absolute 0.02 K/mm3 (0.00-0.031); Immature Granulocyte Percent A 0.2 % (0-0.5); Lymphocytes Absolute Auto 2.72 K/mm3 (0.9-3.2); Lymphocytes Percent Auto 27.4 % (18.3-44.2); Mean Corpuscular HGB Conc 33.5 g/dl (32-36); Mean Corpuscular Hemoglobin 30.4 pg (26-34); Mean Corpuscular Volume 90.9 fl (80-100); Mean Platelet Volume 9.2 fl (7.4-10.4); Monocytes Absolute Auto 0.6 K/mm3 (0.1-0.6); Neutrophils Absolute Auto 6.3 K/mm3 (1.3-6.7); Neutrophils Percent Auto 62.9 % (45.5-73.1); Platelet Count Result 360 k/mm3 (150-375); Red Blood Count 5.29 M/mm3 (4.2-5.4); Red Cell Distribution Width 12.7 % (11.5-14.5); White Blood Count 9.9 K/mm3 (4.5-10.0)
[2024-02-04 20:27] LABS: Alanine Aminotransferase 17 U/L (6-35); Albumin Level 3.9 g/dL (3.5-5.1); Alkaline Phosphatase 73 U/L (38-126); Anion Gap 7 mmol/L (4-12); Aspartate Amino Transferase 19 U/L (14-36); Bilirubin,Total 0.4 mg/dL (0.2-1.3); Blood Urea Nitrogen 14 mg/dL (7-17); Calcium 8.6 mg/dL (8.4-10.2); Carbon Dioxide 24 mmol/L (22-30); Chloride 106 mmol/L (98-107); Estimated CRCL calculation 58 ml/min; Estimated Glomerular Filt Rate > 60; Glucose 110 mg/dL (65-110); Lipase 125 U/L (23-300); Potassium 3.5 mmol/L (3.4-5.0); Sodium 137 mmol/L (137-145)
[2024-02-04] MEDS: SODIUM CHLORIDE 0.9% IV 1,000 ML 999 ML IV CONT (20:50)
[2024-02-04] MEDS: ONDANSETRON INJ 4 MG/2 ML VIAL IV PUSH (20:50)
[2024-02-04] MEDS: DICYCLOMINE HCL INJ 20 MG/2 ML VIAL IM (20:50)
[2024-02-04 21:12] LABS: Appearance Urine Clear (Clear); Bilirubin Urine Negative (Negative); Blood Urine Negative (Negative); Color Urine Yellow (Yellow); Glucose Urine UA Negative (Negative); Ketones Urine Negative (Negative); Leukocyte Esterase Ur Negative LEU/UL (Negative); Nitrate Urine Negative (Negative); Protein Urine Negative (Negative); Specific Grav Ur 1.028 (1.001-1.035); pH Urine 5.5 (5.0-9.0)
[2024-02-04 21:19] LABS: Add Urine Microscopic? NO
--- NOTE | 2024-02-04 22:28 | ED.GENADULT ---
HPI - General Adult General Chief complaint: Abdominal Pain Stated complaint: abd Time Seen by Provider: 02/04/24 20:29 History of Present Illness HPI narrative: patient 38-year-old female presents emergency department with chief complaint of abdominal pain. The patient reports that she has been having pain in the epigastric region right upper quadrant patient reports she was just discharged from [facility] 2 days ago after being treated for cellulitis. Patient reports that she has had some nausea and reports he has had 1 episode of vomiting. The patient reports that her last bowel movement was on Sunday morning. Related Data Home Medications Medication Instructions Recorded Confirmed dextroamphetamine-amphetamine ER 30 mg PO DAILY 11/04/19 05/14/21 30 mg 24hr capsule,extend release (Adderall XR) fluoxetine 40 mg capsule (Prozac) 40 mg PO DAILY 11/04/19 05/14/21 Allergies Allergy/AdvReac Type Severity Reaction Status Date / Time No Known Allergies Allergy Verified 02/04/24 19:46 Review of Systems Review of Systems: A 10 system review of systems was completed on the patient and is negative except for what is stated in the HPI. Nursing and ancillary documentation was reviewed. PMFSH Past Medical History Medical History ADHD Surgical History Surgical History No pertinent past surgical history Family History Family History Unknown No problems noted. Social History Social History Social History: The patient has 3 children and is . She is unemployed at this time. She lives home with her children. She denies any alcohol tobacco marijuana or illicit drugs. Patient is a full code and denies any durable power senior trial attorney for healthcare. Smoking status: Smoker, status unknown Alcohol intake: current Drinks per week: 7 Substance use: never Substance use type: does not use Gender identity (if verbalized by the patient): Female Spiritual care concerns: No Exam Narrative: GENERAL: Well-appearing, well-nourished, and in no acute distress. HEAD: Normocephalic, atraumatic. EYES: PERRLA and EOMI. ENT: Nares clear, no rhinorrhea or epistaxis. Mucous membranes moist. NECK: Supple. CHEST: Clear to auscultation. No respiratory distress. HEART: Regular rate and rhythm. No murmur heard. Normal peripheral pulses. ABDOMEN: Soft, tenderness to palpation in epigastric right upper quadrant, nondistended, normal active bowel sounds. EXTREMITIES: Normal range of motion. No edema. SKIN: Warm, dry, no rash. NEURO: No focal deficits. Alert and oriented x3. PSYCH: Normal mood and affect. Course Vital Signs Vital signs: Vital Signs Temperature 36.2 C L 02/04/24 19:48 Pulse Rate 95 02/04/24 19:48 Respiratory Rate 15 02/04/24 19:48 Blood Pressure 134/95 H 02/04/24 19:48 Pulse Oximetry 98 02/04/24 19:48 Oxygen Delivery Room Air 02/04/24 19:48 Temperature 36.2 C L 02/04/24 19:48 Pulse Rate 95 02/04/24 19:48 Respiratory Rate 15 02/04/24 19:48 Blood Pressure 134/95 H 02/04/24 19:48 Pulse Oximetry 98 02/04/24 19:48 Oxygen Delivery Room Air 02/04/24 19:[address] [facility] Narrative Medical decision making narrative: differential diagnosis includes gastritis, pancreatitis, cholecystitis, hepatitis, gastroenteritis laboratory studies were obtained on the patient showed a normal CBC hemoglobin was 16.1 electrolytes were within normal limits liver enzymes were normal with a bilirubin 0.4 AST and ALT were 19 and 17 respectively alkaline phosphatase was 73 lipase was [address] scan of the abdomen pelvis showed IMPRESSION: No acute abdominopelvic
[2024-02-04] MEDS: PANTOPRAZOLE 40 MG TABLET PO (22:36)
[2024-02-04 22:38] VITALS: BP 128/68; PULSE 85; RESP 18; O2SAT 99
== END 2024-02-04 22:48 | disposition home or self-care (01) ==
PROVIDERS: Emergency Provider Emergency Medicine; PCP Physician Assistant
DX: K29.00 Acute gastritis without bleeding (principal); R10.84 Generalized abdominal pain; F90.9 Attention-deficit hyperactivity disorder, unspecified type
CPT/HCPCS: 36415; 74177; 80053; 81003; 81025; 83690; 85025; 96361; 96372; 96374; 99284; A9270; J0500; J2405; J7030; Q9967